=== PATIENT | male | born 1975 | race Caucasian/White ===

== ENCOUNTER 2019-03-17 07:05 | Emergency (ER) | payer MEDICAID ==
[~2019-03-17] VITALS: Wt 62.0 kg
[2019-03-17 07:11] VITALS: BP 124/74; PULSE 74; RESP 18
[2019-03-17] MEDS ORDERED: NAPR-985 PO (07:46)
[2019-03-17] MEDS ORDERED: HYDR-4011 PO (07:46)
[2019-03-17] MEDS ORDERED: CYCL10TA7 PO (07:46)
[2019-03-17] MEDS ORDERED: IBUPROFEN 800 MG TAB PO ONE (08:00)
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
== END 2019-03-17 08:28 | disposition home or self-care (01) ==
LOC: FTE 07:05
DX: M25.511 Pain in right shoulder (principal); M54.5 Low back pain
CPT/HCPCS: Z7502; Z7610; 99283